=== PATIENT | male | born 1950 | race Caucasian/White ===

== ENCOUNTER 2019-12-19 13:39 | Outpatient (CLI) | payer OTHER ==
[~2019-12-19 13:39] MED LIST: COZAAR50 MG PO
== END 2019-12-19 13:45 | disposition home or self-care (01) ==
LOC: SONOGRAMA 13:39
PROVIDERS: ATTEND Internal Medicine Cardiovascular Disease
DX: E04.1 Nontoxic single thyroid nodule (principal)

== ENCOUNTER 2021-06-10 13:27 | Outpatient (CLI) | payer OTHER | END 2021-06-10 13:28 | disposition home or self-care (01) | LOC: NUCLEAR 13:27 | PROVIDERS: ATTEND Orthopaedic Surgery | DX: I70.212 Atherosclerosis of native arteries of extremities with intermittent claudication, left leg (principal) ==

== ENCOUNTER 2021-06-13 13:15 | Outpatient (CLI) | payer OTHER | END 2021-06-13 13:17 | disposition home or self-care (01) | LOC: NUCLEAR 13:15 | PROVIDERS: ATTEND Orthopaedic Surgery | DX: I82.502 Chronic embolism and thrombosis of unspecified deep veins of left lower extremity (principal) ==

== ENCOUNTER 2022-08-29 09:31 | Emergency (ER) | payer OTHER ==
[~2022-08-29] VITALS: Ht 177.8 cm; Wt 81.6 kg
[~2022-08-29 09:31] MED LIST changes: +METFORMIN HCL1000 M2 PO; +PERCOCET 5-3251 EACH PO; +VERELAN240 MG PO
[2022-08-29] MEDS ORDERED: PERCOCET 5-3251 EACH PO (15:13)
[2022-08-29] MEDS ORDERED: AMOX-CLAV 875-1 EACH PO (15:13)
== END 2022-08-29 16:10 | disposition home or self-care (01) ==
LOC: ER 09:31
DX: R07.9 Chest pain, unspecified (principal); J03.90 Acute tonsillitis, unspecified; I10 Essential (primary) hypertension; E11.9 Type 2 diabetes mellitus without complications; Z79.84 Long term (current) use of oral hypoglycemic drugs; Z20.822 Contact with and (suspected) exposure to COVID-19

== ENCOUNTER 2025-02-26 15:14 | Outpatient (CLI) | payer OTHER ==
[~2025-02-26 15:14] MED LIST changes: +AMOX-CLAV 875-1 EACH PO
== END 2025-02-26 15:19 | disposition home or self-care (01) ==
LOC: RAD 15:14
PROVIDERS: ATTEND Family Medicine
DX: M79.642 Pain in left hand (principal)